=== PATIENT | female | born 1975 | race American Indian/Alaskan Native ===

== ENCOUNTER 2018-09-11 23:43 | Emergency (ER) | payer MEDICARE ==
[2018-09-12] MEDS ORDERED: ZOFRAN ODT PO ONE (01:06)
[2018-09-12] MEDS ORDERED: ZOFRAN ODT ONE (01:06)
[2018-09-12 01:33] LABS: Basophils % (Auto) 0.3 % (0.0-1.8); Eosinophils # (Auto) 0.7 K/mm3 (0.0-0.4); Eosinophils % (Auto) 12.7 % (0.0-4.3); Hematocrit 32.1 % (30.3-42.9); Hemoglobin 10.4 gm/dl (10.1-14.3); Lymphocytes % (Auto) 35.8 % (13.4-35.0); Mean Corpuscular HGB Conc 32 % (30-34); Mean Corpuscular Hemoglobin 28 pg (28-32); Mean Corpuscular Volume 87 fl (79-97); Monocytes # (Auto) 0.3 K/mm3 (0.0-0.8); Monocytes % (Auto) 6.3 % (0.0-7.3); Platelet Count 412 K/mm3 (140-440)
[2018-09-12 01:49] LABS: BUN/Creatinine Ratio 17; Blood Urea Nitrogen 12 mg/dL (7-17); Calcium 9.4 mg/dL (8.4-10.2); Hemolysis Index 10
[2018-09-12] MEDS ORDERED: BENADRYL IV ONE (02:31)
[2018-09-12] MEDS ORDERED: MORPHINE IV ONE (02:31)
[2018-09-12] MEDS ORDERED: TORADOL IV ONE (02:31)
--- NOTE | 2018-09-12 03:30 | XRay Report ---
FINAL REPORT PROCEDURE: XR HIP 2-3V RT TECHNIQUE: RIGHT hip radiographs, AP and lateral views. HISTORY: right hip pain COMPARISON: No prior studies are available for comparison. FINDINGS: Fracture (s) and/or Dislocation(s): None . Joint space(s): Normal . Soft tissues: Normal . Bone mineralization: Normal . Foreign bodies: None . There is a curvilinear density along the right greater trochanter which could be evidence of chronic calcific tendinosis. IMPRESSION: There are no fractures or dislocations. Soft tissues are unremarkable. There is no significant degene rative arthrosis.. There is a curvilinear density along the right greater trochanter which could be evidence of chronic calcific tendinosis.
--- NOTE | 2018-09-12 03:30 | XRay Report ---
FINAL REPORT PROCEDURE: XR CHEST ROUTINE 2V TECHNIQUE: PA and lateral chest radiographs were obtained. CPT 01331 HISTORY: chest pain COMPARISON: No prior studies are available for comparison. FINDINGS: Heart: Normal. Mediastinum/Vessels: Normal. Lungs/Pleural space: Normal. Bony thorax: No acute osseous abnormality. Other: IMPRESSION: Normal examination.
--- NOTE | 2018-09-12 03:48 | Emergency Department Report ---
ED General Adult HPI - General Chief complaint: Chest Pain Stated complaint: CHEST PAIN Time Seen by Provider: 09/12/18 02:30 Source: patient Mode of arrival: Ambulatory Limitations: No Limitations - History of Present Illness Initial comments: Patient is a 43-year-old female with multiple past medical problems which include diabetes congestive heart failure asthma and seizure disorder who is complaining of one-week of hip pain on the right. Patient states that she had a seizure several weeks ago was hurting all over however most of her pain is resolved except for her right hip. Patient states is worse with walking and it does radiate down the leg. Patient states these skin is warm to touch. Patient states her pain was so bad tonight that she she started having chest discomfort for the last 6 hours. Patient states the pain does radiate to the left arm and is stabbing in nature. Patient states it hurts when she takes a deep breath. Patient denies any nausea vomiting, fevers or chills. - Related Data Home Medications Medication Instructions Recorded Confirmed Last Taken Cetirizine HCl [Zyrtec] 10 mg PO DAILY 03/19/14 05/19/14 03/18/14 Previous Rx's Medication Instructions Recorded Last Taken Type ALBUTEROL Inhaler (OR & NICU) 2 puff IH QID PRN #2 inha 05/26/14 Unknown Rx [ProAir HFA Inhaler] Esomeprazole Magnesium [NexIUM] 40 mg PO QDAY #30 capsule. 05/26/14 Unknown Rx Fluticasone [Flonase] 1 spray NS BID #1 bottle 05/26/14 Unknown Rx Fluticasone/Salmeterol [Advair 2 puff IH BID #1 disk.w.dev 05/26/14 Unknown Rx Diskus 500-50 mcg] Furosemide [Lasix] 20 mg PO QHS #30 tablet 05/26/14 Unknown Rx Insulin Aspart [NovoLOG 100 4 unit SQ AC #100 units 05/26/14 Unknown Rx UNITS/ML VIAL] Insulin Glargine,Hum.rec.anlog 50 unit SQ QHS #300 ml 05/26/14 Unknown Rx [Lantus] Ipratropium/Albuterol Sulfate 1 ampul IH Q8HRT #100 ampul.neb 05/26/14 Unknown Rx [DUONEB *Not for PRN Use*] Losartan [Cozaar] 25 mg PO QDAY #30 tablet 05/26/14 Unknown Rx Metoclopramide HCl [Reglan] 10 mg PO 5XD #30 tablet 05/26/14 Unknown Rx Montelukast [Singulair] 10 mg PO QPM #30 tablet 05/26/14 Unknown Rx Nicotine [Habitrol] 14 mg TD Q24H #30 patch 05/26/14 Unknown Rx Potassium Chloride [K-Dur] 20 meq PO QDAY #30 tablet 05/26/14 Unknown Rx Pregabalin [Lyrica] 300 mg PO BID #60 capsule 05/26/14 Unknown Rx Promethazine [Phenergan SUPPOS] 25 mg RI Q6H PRN #60 supp.rect 05/26/14 Unknown Rx Rosuvastatin (Nf) [Crestor] 20 mg PO QHS #30 tablet 05/26/14 Unknown Rx Sennosides Tab [Senokot] 8.6 mg PO Q12H PRN #30 tablet 05/26/14 Unknown Rx Verapamil HCl [Verapamil ER] 120 mg PO QDAY #30 cap24h.pel 05/26/14 Unknown Rx oxyCODONE ER [OxyCONTIN ER TAB] 10 mg PO Q12HR #60 tablet 05/26/14 Unknown Rx predniSONE 10 mg PO QDAY #30 tablet 05/26/14 Unknown Rx Ondansetron [Zofran Odt] 8 mg PO Q8HR PRN #15 tab.rapdis 03/08/15 Unknown Rx Tramadol HCl [traMADol] 50 mg PO Q8HR PRN #20 tablet 03/08/15 Unknown Rx Ibuprofen [Motrin] 600 mg PO Q8H PRN #20 tablet 09/12/18 Unknown Rx traMADol [Ultram] 50 mg PO Q6HR PRN #12 tablet 09/12/18 Unknown Rx Allergies Allergy/AdvReac Type Severity Reaction Status Date / Time amoxicillin Allergy Hives Verified 09/12/18 00:41 aspirin Allergy Shortness Verified 03/19/14 11:18 of Breath ciprofloxacin [From Cipro] Allergy Hives Verified 09/12/18 00:41 hydrocodone Allergy Hives Verified 09/12/18 00:41 Penicillins Allergy Swelling Verified 03/09/14 22:08 ED Review of Systems ROS: Stated complaint: CHEST PAIN Other details as noted in HPI Comment: All other systems reviewed and negative ED Past Medical Hx - Past Medical History Previous Medical History?: Yes Hx Hypertension: Yes Hx Heart Attack/AMI: Yes Hx Congestive Heart Failure: Yes Hx Diabetes: Yes Hx GERD: Yes Hx Arthritis: Yes Hx Seizures: Yes (As a child about 14 or 15yrs. old) Hx Asthma: Yes Hx COPD: No Additional medical history: pulmonary fibrosis, tachy, high cholesterol, AFIB, gastroporesis, neuropathy - Surgical History Past Surgical History?: Yes Additional Surgical History: hysterectomy, c.sections x 3, cardiac cath x 2, lung biopsy (multiple), bronchoscopy (multiple), tonsilectomy - Social History Smoking Status: Former Smoker Substance Use Type: None - Medications Home Medications: Home Medications Medication Instructions Recorded Confirmed Last Taken Type Cetirizine HCl [Zyrtec] 10 mg PO DAILY 03/19/14 05/19/14 03/18/14 History ALBUTEROL Inhaler (OR & NICU) 2 puff IH QID PRN #2 inha 05/26/14 Unknown Rx [ProAir HFA Inhaler] Esomeprazole Magnesium [NexIUM] 40 mg PO QDAY #30 capsule.dr 05/26/14 Unknown Rx Fluticasone [Flonase] 1 spray NS BID #1 bottle 05/26/14 Unknown Rx Fluticasone/Salmeterol [Advair 2 puff IH BID #1 disk.w.dev 05/26/14 Unknown Rx Diskus 500-50 mcg] Furosemide [Lasix] 20 mg PO QHS #30 tablet 05/26/14 Unknown Rx Insulin Aspart [NovoLOG 100 4 unit SQ AC #100 units 05/26/14 Unknown Rx UNITS/ML VIAL] Insulin Glargine,Hum.rec.anlog 50 unit SQ QHS #300 ml 05/26/14 Unknown Rx [Lantus] Ipratropium/Albuterol Sulfate 1 ampul IH Q8HRT #100 ampul.neb 05/26/14 Unknown Rx [DUONEB *Not for PRN Use*] Losartan [Cozaar] 25 mg PO QDAY #30 tablet 05/26/14 Unknown Rx Metoclopramide HCl [Reglan] 10 mg PO 5XD #30 tablet 05/26/14 Unknown Rx Montelukast [Singulair] 10 mg PO QPM #30 tablet 05/26/14 Unknown Rx Nicotine [Habitrol] 14 mg TD Q24H #30 patch 05/26/14 Unknown Rx Potassium Chloride [K-Dur] 20 meq PO QDAY #30 tablet 05/26/14 Unknown Rx Pregabalin [Lyrica] 300 mg PO BID #60 capsule 05/26/14 Unknown Rx Promethazine [Phenergan SUPPOS] 25 mg RI Q6H PRN #60 supp.rect 05/26/14 Unknown Rx Rosuvastatin (Nf) [Crestor] 20 mg PO QHS #30 tablet 05/26/14 Unknown Rx Sennosides Tab [Senokot] 8.6 mg PO Q12H PRN #30 tablet 05/26/14 Unknown Rx Verapamil HCl [Verapamil ER] 120 mg PO QDAY #30 cap24h.pel 05/26/14 Unknown Rx oxyCODONE ER [OxyCONTIN ER TAB] 10 mg PO Q12HR #60 tablet 05/26/14 Unknown Rx predniSONE 10 mg PO QDAY #30 tablet 05/26/14 Unknown Rx Ondansetron [Zofran Odt] 8 mg PO Q8HR PRN #15 tab.rapdis 03/08/15 Unknown Rx Tramadol HCl [traMADol] 50 mg PO Q8HR PRN #20 tablet 03/08/15 Unknown Rx Ibuprofen [Motrin] 600 mg PO Q8H PRN #20 tablet 09/12/18 Unknown Rx traMADol [Ultram] 50 mg PO Q6HR PRN #12 tablet 09/12/18 Unknown Rx ED Physical Exam - General Limitations: No Limitations General appearance: alert, in no apparent distress - Head Head exam: Present: atraumatic, normocephalic - Eye Eye exam: Present: normal appearance - ENT ENT exam: Present: mucous membranes moist - Neck Neck exam: Present: normal inspection - Respiratory Respiratory exam: Present: normal lung sounds bilaterally. Absent: respiratory distress, wheezes, rales, rhonchi - Cardiovascular Cardiovascular Exam: Present: regular rate, normal rhythm. Absent: systolic murmur, diastolic murmur, rubs, gallop - GI/Abdominal GI/Abdominal exam: Present: soft, normal bowel sounds. Absent: distended, tenderness, guarding, rebound - Extremities Exam Extremities exam: Present: normal inspection, full ROM, tenderness (to the right hip. There is some warmth with no indurated skin or erythema is present.) - Back Exam Back exam: Present: normal inspection - Neurological Exam Neurological exam: Present: alert, oriented X3 - Psychiatric Psychiatric exam: Present: normal affect, normal mood - Skin Skin exam: Present: warm, dry, intact, normal color. Absent: rash ED Course Vital Signs 09/12/18 00:21 Temperature 98.4 F Pulse Rate 102 H Respiratory 18 Rate Blood Pressure 166/88 O2 Sat by Pulse 100 Oximetry ED Medical Decision Making - Lab Data Result diagrams: 09/12/18 00:55 09/12/18 00:55 Lab Results 09/12/18 09/12/18 09/12/18 Range/Units 00:55 00:55 02:34 WBC 5.5 (4.5-11.0) K/mm3 RBC 3.70 (3.65-5.03) M/mm3 Hgb 10.4 (10.1-14.3) gm/dl Hct 32.1 (30.3-42.9) % MCV 87 (79-97) fl MCH 28 (28-32) pg MCHC 32 (30-34) % RDW 16.0 H (13.2-15.2) % Plt Count 412 (140-440) K/mm3 Lymph % (Auto) 35.8 H (13.4-35.0) % Talbot % (Auto) 6.3 (0.0-7.3) % Eos % (Auto) 12.7 H (0.0-4.3) % Baso % (Auto) 0.3 (0.0-1.8) % Lymph # 2.0 (1.2-5.4) K/mm3 Talbot # 0.3 (0.0-0.8) K/mm3 Eos # 0.7 H (0.0-0.4) K/mm3 Baso # 0.0 (0.0-0.1) K/mm3 Seg Neutrophils % 44.9 (40.0-70.0) % Seg Neutrophils # 2.5 (1.8-7.7) K/mm3 D-Dimer < 135 (0-234) ng/mlDDU Sodium 141 (137-145) mmol/L Potassium 3.7 (3.6-5.0) mmol/L Chloride 102.2 (98-107) mmol/L Carbon Dioxide 26 (22-30) mmol/L Anion Gap 17 mmol/L BUN 12 (7-17) mg/dL Creatinine 0.7 (0.7-1.2) mg/dL Estimated GFR > 60 ml/min BUN/Creatinine Ratio 17 % Glucose 136 H (65-100) mg/dL Calcium 9.4 (8.4-10.2) mg/dL Troponin T < 0.010 (0.00-0.029) ng/mL - EKG Data -: EKG Interpreted by Me EKG shows normal: sinus rhythm, axis, intervals, QRS complexes, ST-T waves Rate: normal - EKG Data Interpretation: [facility] - Radiology Data X-ray of the chest shows no acute process. X-ray of the right hip shows evidence of calcific tendinosis but no acute fractures - Medical Decision Making Patient with approximately 1 week of right hip pain. Patient has seizures several weeks ago and was hurting all over but is now states the pain is only in the right hip. On differential is a tendinitis but also bursitis or hip contusion. Patient to be referred to Dr. Camacho with orthopedics. Patient also is requesting a primary care physician. Patient's chest pain showed a negative troponin as well as negative d-dimer. Symptoms are very atypical and likely a reaction to her right hip pain. Patient does seem quite anxious and repeats her extensive medical history multiple times. Critical care attestation.: If time is entered above; I have spent that time in minutes in the direct care o f this critically ill patient, excluding procedure time. ED Disposition Clinical Impression: Calcific tendinitis of both hips, Atypical chest pain Disposition: TO HOME OR SELFCARE Is pt being admited?: No Does the pt Need Aspirin: No Condition: Stable Instructions: Chest Pain (ED), Arthralgia (ED) Referrals: TOSHIA CAMACHO MD [Staff Physician] - 3-5 Days [facility] [Outside] - 3-5 Days
[2018-09-12] MEDS ORDERED: ULTRAM ONE (04:52)
[2018-09-12] MEDS ORDERED: ULTRAM PO ONE (04:52)
[2018-09-12 04:54] VITALS: BP 172/90
== END 2018-09-12 05:02 | disposition home or self-care (01) ==
LOC: ED 23:43
DX: M65.28 Calcific tendinitis, other site (principal); R07.89 Other chest pain; I11.0 Hypertensive heart disease with heart failure; I50.9 Heart failure, unspecified; I25.2 Old myocardial infarction; E11.9 Type 2 diabetes mellitus without complications; K21.9 Gastro-esophageal reflux disease without esophagitis; M19.90 Unspecified osteoarthritis, unspecified site; G40.909 Epilepsy, unspecified, not intractable, without status epilepticus; E78.00 Pure hypercholesterolemia, unspecified; Z90.710 Acquired absence of both cervix and uterus; Z90.89 Acquired absence of other organs; Z87.891 Personal history of nicotine dependence; Z79.4 Long term (current) use of insulin; Z88.1 Allergy status to other antibiotic agents; Z88.6 Allergy status to analgesic agent; Z88.5 Allergy status to narcotic agent; Z88.0 Allergy status to penicillin
CPT/HCPCS: 36415; 71046; 73502; 80048; 84484; 85025; 85379; 93005; 93010; 96374; 96375; 99284; J1200; J1885; J2270; Q0162